=== PATIENT | female | born 1935 | race Caucasian/White ===

== ENCOUNTER 2016-05-23 18:25 | Emergency (ER) | payer MEDICARE ==
--- NOTE | 2016-05-23 19:59 | RAD ---
INDICATION: Left wrist injury. TECHNIQUE: 3 views of the left wrist were obtained. FINDINGS: The bones appear osteoporotic. There is a transverse comminuted impacted fracture of the radial metaphysis. The distal fragment demonstrates dorsal angulation relative to the proximal fragment. There is also a fracture of the ulnar styloid process. IMPRESSION: 1. Transverse, comminuted, impacted, angulated fracture of the distal radius. 2. Fracture of the ulnar styloid process.
--- NOTE | 2016-05-23 20:01 | RAD ---
INDICATION: Left hand injury. TECHNIQUE: 2 views of the left hand were obtained. FINDINGS: The bones are osteoporotic. Again note is made of a transverse, comminuted, impacted fracture of the distal radius. The distal fragment demonstrates posterior angulation relative the proximal fragment. There is also a fracture of the ulnar styloid process. No additional fracture is seen. IMPRESSION: FRACTURES OF THE WRIST PREVIOUS SEEN NOTED, NO ADDITIONAL FRACTURE IS SEEN.
[2016-05-23] MEDS ORDERED: Ondansetron INJ* 2 MG/ML VIAL IV ONE (20:02)
[2016-05-23] MEDS ORDERED: Morphine INJ* 2 MG/ML 1 ML CARPUJECT IV ONE (20:02)
[2016-05-23] MEDS ORDERED: HYDROcodone/ACETAMIN 5-325 MG* 1 TAB PO ONE ×2 (20:34→21:43)
--- NOTE | 2016-05-23 21:38 | RAD ---
INDICATION: Traumatic fracture of the left wrist. COMPARISON: Comparison is made with a prior prereduction films of the same date. TECHNIQUE: 2 views of the left wrist were obtained. FINDINGS: The patient is status post external reduction. The bones are visualized through a plaster cast limiting much of the detail. Again note is made of a comminuted fracture of the distal radial metaphysis. There is mild impaction of the fracture fragments and slight lateral displacement of the major distal fragment relative the proximal fragment. There is significant improvement in alignment and position of the fracture fragments. IMPRESSION: STATUS POST EXTERNAL REDUCTION IMPROVED ALIGNMENT AND POSITION OF THE FRACTURE FRAGMENTS.
[2016-05-23] MEDS ORDERED: Cephalexin CAP* 500 MG PO ONE ×2 (21:42)
--- NOTE | 2016-05-23 21:55 | RAD ---
INDICATION: Head injury. COMPARISON: There are no prior studies available for comparison. TECHNIQUE: Contiguous axial sections of the brain were obtained from the skull base to the vertex without contrast. FINDINGS: The ventricles, cisterns and sulci are enlarged consistent with diffuse atrophy. 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 No other focal abnormalities or mass effect is seen. There is no evidence for hemorrhage. No significant focal osseous abnormality is seen. The visualized portion of the paranasal sinuses and mastoid air cells appear clear. 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
[2016-05-23 22:38] VITALS: BP 138/80
--- NOTE | 2016-05-23 22:54 | ED ---
Upper Extremity Pain - HPI Summary HPI Summary: Pt here w/ FOOSH prior to arrival. Was at her daughter's wedding when she lost her footing and fell backwards, catching herself with her Left arm. She landed on a carpeted floor. Has pain, deformity and blood from her wrist. Someone made her a makeshift splint which has helped. Has some numbness, coolness of her pinky finger here. Imms are UTD. Denies any other area of injury/pain. She did not hit her head nor lose consciousness. Denies NAIR, change in vision, vomiting, light sensitivity, confusion, neck pain but she does take Eliquis. She also has a h/o seizures but hasn't had one in many months. Takes Keppra. Admits to h/o Lt arm fx before but healed well and no residual issues. 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 - Allergies/Home Medications Allergies/Adverse Reactions: Allergies Allergy/AdvReac Type Severity Reaction Status Date / Time Statins Allergy Unknown Verified 05/23/16 18:29 Reaction Details Home Medications: Home Medications Apixaban* [Eliquis*] 5 mg PO BID 05/23/16 [History Confirmed 05/23/16] Aspirin [[facility]ago Childrens Aspirin] 81 mg PO 05/23/16 [History] Digoxin TAB* [Lanoxin TAB*] 250 mcg PO DAILY 05/23/16 [History Confirmed ] Levetiracetam [Keppra 500] 500 mg PO BID 05/23/16 [History Confirmed 05/23/16] Levothyroxine TAB* [Synthroid TAB*] 50 mcg PO DAILY 05/23/16 [History Confirmed 05/23/16] Metoprolol Tartrate [Lopressor] 50 mg PO BID 05/23/16 [History Confirmed ] Pitavastatin Calcium [Livalo] 1 mg PO DAILY 05/23/16 [History Confirmed 05/23/16 ] PMH/Surg Hx/FS Hx/Imm Hx Previously Healthy: Yes Endocrine/Hematology History: Reports: Hx Anticoagulant Therapy - Eliquis Denies: Hx Blood Disorders, Hx Unexplained Bleeding Cardiovascular History: Reports: Hx Atrial Fibrillation, Hx Coronary Artery Disease - H/O CABG Musculoskeletal History: Reports: Hx of Fracture(s) - Lt arm Neurological History: Reports: Hx Seizures - controlled w/ KEPPRA Infectious Disease History: No Infectious Disease History: Denies: Traveled Outside the [place] in Last 30 Days - Family History Known Family History: Positive: None - Social History Occupation: Retired Lives: Alone - [facility] Alcohol Use: Rare - had wine tonight prior to arrival Hx Substance Use: No Substance Use Type: Reports: None Hx Tobacco Use: No Smoking Status (MU): Never Smoked Tobacco Review of Systems Negative: Fever, Chills, Fatigue Negative: Photophobia, Blurred Vision, Diplopia Negative: Epistaxis, Dental Pain Negative: Chest Pain Negative: Shortness Of Breath Negative: Abdominal Pain, Vomiting, Diarrhea, Nausea Positive: no symptoms reported Musculoskeletal: Other - see HPI Skin: Other - see HPI Positive: Paresthesia - see HPI. Negative: Headache, Weakness, Numbness, Syncope, Slurred Speech Psychological: Normal All Other Systems Reviewed And Are Negative: Yes Physical Exam Triage Information Reviewed: Yes Vital Signs On Initial Exam: Initial Vitals Temp Pulse Resp BP Pulse Ox 98.4 F 140 18 150/80 99 05/23/16 18:27 05/23/16 18:27 05/23/16 18:27 05/23/16 18:27 05/23/16 18:27 Vital Signs Reviewed: Yes Appearance: Positive: Well-Appearing, No Pain Distress, Well-Nourished Skin: Positive: Warm - small puncture/abrasion wound with oozing blood over Lt lateral wrist where wrist is deformed; ecchymosis and edema here as well Head/Face: Positive: Normal Head/Face Inspection Eyes: Positive: Normal, EOMI, JEREMIE, Conjunctiva Clear ENT: Positive: Hearing grossly normal, Pharynx normal Dental: Negative: Dental Fracture @ Neck: Positive: Supple, Nontender Respiratory/Lung Sounds: Positive: Breath Sounds Present Cardiovascular: Positive: Normal, Pulses are Symmetrical in both Upper and Lower Extremities - cap refill < 2 secs, radial pulse + 2 equal B/L Abdomen Description: Positive: Nontender, Soft Musculoskeletal: Positive: Pain @ - Lt wrist w/ gross defromity - moving fingers well here - limited ROM wrist d/t pain and deformity; elbow is initially TTP but then maybe not TTP? no shi deformity or edema here Neurological: Positive: Normal, Sensory/Motor Intact - pt reports full sensation w/ gross touch over Lt pinky finger, Alert, Oriented to Person Place, Time, CN Intact II-III Psychiatric: Positive: Normal - concerned, anxious but calm, cooperative Procedures - Splinting Location: Lt wrist - performed by Dr. [facility] - Vital Signs Vital Signs Temp Pulse Resp BP Pulse Ox 05/23/16 22:37 98.1 F 88 20 138/80 05/23/16 18:27 98.4 F 140 18 150/80 99 - Laboratory Lab Statement: Any lab studies that have been ordered have been reviewed, and results considered in the medical decision making process. Re-Evaluation - Re-Evaluation First Eval Change: Improved - s/p splint placement Course/Dx - Course Course Of Treatment: Pt arrived to ED w/ FOOSH injury and Lt wrist deformity. XR 's as well as IV medications were ordered. Elbow XR was cancelled? This test was not re-ordered by Dr. Arshad. Pt refused IV meds. A CT was strongly encouraged - declined at first, but later agreed to test which was performed d/ t jarring impact injury in an 80 y.o on [facility]. Pt agreed to oral pain medications and wrist fx reduction/splint performed by Dr. Arshad. Pt reports improved pain after procedure and d/c'd w/ anbx and pain meds. She is from [facility] so will f/u w/ her specialist in [place] for wrist injury. Also discussed importance of ongoing monitoring s/p fall re: neurological sx. Reviewed danger s/sx of when to return to ED. Pt and daughter voice understanding. - Diagnoses Provider Diagnoses: Fracture of left distal radius, Fracture of ulnar styloid - Physician Notifications Discussed Care Of Patient With: Dr. Arshad Discharge - Discharge Plan Condition: Stable Disposition: HOME Prescriptions: Cephalexin CAP* [Keflex CAP*] 500 mg PO BID #10 cap HYDROcodone/ACETAMIN 5-325 MG* [[place] 5-325 TAB*] 1 tab PO Q6H PRN #15 tab MDD 4 PRN Reason: Pain Patient Education Materials: Wrist Fracture in Adults (ED), Splint Care (ED) Referrals: Pete MOJICA,Sam Carranza [Medical Doctor] - Additional Instructions: Rest Ice Elevate Keep splint dry and intact Take pain medication as directed. Complete antibiotics as directed. You may eat/take probiotics in between doses to prevent diarrhea, yeast infection. Follow-up with your ammunition specialist (A hand and wrist specialist from [facility] group on [address] has been provided but you may contact whomever you prefer). Call Wednesday to schedule an appointment for this week. A disc with your injury images has been provided today - please take this with you to your appointment. *If you develop numbness, skin discoloration, or excessive swelling of fingers, you may loosen your MANJIT wrap but do not completely remove splint. If symptoms persist despite this adjustment, return to ED. In regards to your brain health, your brain CT today was normal. This was performed because you endured a fall injury with impact and you take a mediation that increases your risk for bleeding (Eliquis). It is important that you and your family monitor your neurological symptoms as well as behavior over the next few weeks. Follow-up with your PCP this week for guidance on how to monitor. Call Wednesday for an appointment. *If you notice a headache, change in vision, vomiting, neck pain, confusion, light sensitivity, numbness or weakness, return to ED. Your medication were sent to: [facility] [place] [id number] Open at 8:00AM Close at 6:00PM
--- NOTE | 2016-05-24 03:34 | CONS ---
CC: Dr. Arshad CONSULTATION REPORT: DATE OF CONSULT: 05/23/16 CHIEF COMPLAINT: Left wrist pain. HISTORY OF PRESENT ILLNESS: Ashley is an 80-year-old female who was at her daughter's wedding, she t ripped and fell on her outstretched left hand injuring her left wrist. She complains of numbness in her ulnar 2 fingers and pain in her left wrist. She denies loss of consciousness. PHYSICAL EXAMINATION: She is a healthy appearing, very pleasant female, in moderate distress at [facility] t. She has a marked deformity of her left wrist. There is a tiny puncture wound of the ulnar aspec t of the distal forearm far away from the fracture site. She has full range of motion of her finger s. She has intact sensation in the median and radial nerve distribution, decreased sensation in the ulnar nerve distribution. No elbow tenderness. DIAGNOSTIC STUDIES: X-ray of her left hand appears normal. X-ray of her left wrist shows a comminu carol extra-articular displaced fracture of the distal radius. IMPRESSION: Left distal radius fracture. PLAN: The wound was cleaned with alcohol, dressed with triple antibiotic ointment. She was given a hematoma block with 10 cc of 1% plain lidocaine. The fracture was then manipulated and reduced and postreduction x-ray shows marked improvement in the alignment of the fracture fragments. Clinically , her wrist and hand feels better, but she still has decreased sensation in the ulnar nerve distribu tion. Plan is for the patient to be discharged to home on an oral antibiotic. She is to follow up w ith an orthopedist at home next week. She was instructed an icing, elevating, and will follow up wi th ar as needed. [id number]/[facility] #: [id number]
== END 2016-05-23 22:37 | disposition home or self-care (01) ==
LOC: ED 18:25
DX: S52.502A Unspecified fracture of the lower end of left radius, initial encounter for closed fracture (principal); S52.612A Displaced fracture of left ulna styloid process, initial encounter for closed fracture; R20.9 Unspecified disturbances of skin sensation; W19.XXXA Unspecified fall, initial encounter; Y93.9 Activity, unspecified; Y92.9 Unspecified place or not applicable; Y99.9 Unspecified external cause status
CPT/HCPCS: 70450; 99283; A9270-GY